=== PATIENT | male | born 1950 | race Two or more races ===

== ENCOUNTER → 2017-08-24 | Emergency (ER) | payer OTHER ==
[~2017-08-24] VITALS: Ht 175.3 cm; Wt 83.5 kg
[~2017-08-24] MED LIST: ASA81 MG; ASPIR 8181 MG; CEFTAZIDIME IV; COREG; COREG CR10 MG; COREG CR20 MG; Coreg PO; HUMALOG100 UNIT/1; HUMULIN 70/30 V10 ML; ISORDIL; ISOSORBIDE DINI30 MG; Imdur 30MG PO; LANTUS SOL100 UNIT/1; LANTUS100 U/ML; LIPITOR40 MG; LIPITOR40 MG PO; LOSARTAN-HCTZ1 EAC1; NORVASC5 MG; Rocephin 2000 mg vial IV; SYNTHROID50 MCG; ZESTRIL5 MG PO
== END | disposition home or self-care (01) ==
LOC: ER 19:37
DX: R53.1 Weakness (principal); R07.89 Other chest pain

== ENCOUNTER → 2017-09-13 | Emergency (ER) | payer OTHER ==
[~2017-09-13] VITALS: Ht 175.3 cm; Wt 81.6 kg
== END | disposition home or self-care (01) ==
LOC: ER 19:52
DX: B34.9 Viral infection, unspecified (principal); N39.0 Urinary tract infection, site not specified; J11.1 Influenza due to unidentified influenza virus with other respiratory manifestations

== ENCOUNTER 2018-03-21 20:27 | Emergency (ER) | payer OTHER ==
[~2018-03-21] VITALS: Ht 175.3 cm; Wt 81.6 kg
[2018-03-22] MEDS ORDERED: CEFUROXIME250 MG PO (01:55)
== END 2018-03-22 04:32 | disposition home or self-care (01) ==
LOC: ER 20:27
DX: R42 Dizziness and giddiness (principal); N39.0 Urinary tract infection, site not specified; Z99.2 Dependence on renal dialysis

== ENCOUNTER 2018-03-26 16:04 | Emergency (ER) | payer OTHER ==
[~2018-03-26] VITALS: Ht 175.3 cm; Wt 83.9 kg
[~2018-03-26 16:04] MED LIST changes: +CEFUROXIME250 MG PO
== END 2018-03-26 21:20 | disposition home or self-care (01) ==
LOC: ER 16:04
DX: R42 Dizziness and giddiness (principal)

== ENCOUNTER → 2018-06-25 | Emergency (ER) | payer OTHER ==
[~2018-06-25] VITALS: Ht 177.8 cm; Wt 81.6 kg
[~2018-06-25] MED LIST changes: +DOXYCYCLINE HY100 MG PO; +ZEPATIER 50-101 EACH
== END | disposition home or self-care (01) ==
LOC: ER 14:35
DX: R53.1 Weakness (principal); Z99.2 Dependence on renal dialysis

== ENCOUNTER → 2018-07-29 | Emergency (ER) | payer OTHER ==
[~2018-07-29] VITALS: Ht 177.8 cm; Wt 81.6 kg
== END | disposition home or self-care (01) ==
LOC: ER 21:14
DX: D50.0 Iron deficiency anemia secondary to blood loss (chronic) (principal)

== ENCOUNTER 2018-12-05 21:03 | Emergency (ER) | payer OTHER ==
[~2018-12-05] VITALS: Ht 177.8 cm; Wt 80.7 kg
[~2018-12-05 21:03] MED LIST changes: +COREG 12.5 MG
== END 2018-12-05 22:54 | disposition home or self-care (01) ==
LOC: ER 21:03
DX: M79.605 Pain in left leg (principal); M79.675 Pain in left toe(s)